=== PATIENT | male | born 1940 | race Caucasian/White ===

== ENCOUNTER 2016-11-09 12:20 | Inpatient (IN) | payer MEDICARE, MEDICAID ==
[~2016-11-09] VITALS: Ht 182.9 cm; Wt 52.2 kg
[~2016-11-09 12:20] MED LIST: ACET-868 PO; ALBU2.5V38 IH; ASCO250T5 PO; CLON0.1T PO; DOCU250C75 PO; ENOX30DI SQ; FERR325T28 PO; FURO40TA5 PO; HYDR-3326 PO; IPRA0.2S9 IH; LACT-15 PO; LEVO500T15 PO; LORA0.5T PO; MAG30ORA PO; MAGN400O6 PO; MIRT30TA PO; MULT1TAB11 PO; NICO1PAT25 TD; NICO1PAT28 TD; ONDA4TAB5 PO; PANT40TA4 PO; POTA10CA43 PO; RXVAN XX; SENN8.6T6 PO; ZINC220C6 PO; ZOLP5TAB2 PO
[2016-11-09 12:59] LABS: BASOPHILS # (AUTO) 0.3 /CMM (0.0-0.2); DIFF TOTAL % 100 %; EOSINOPHILS # (AUTO) 0.1 /CMM (0.0-0.7); EOSINOPHILS % (AUTO) 0.7 % (0.0-6.0); HEMATOCRIT 25 % (39-51); HEMOGLOBIN 8.3 g/dL (13.5-17.5); LYMPHOCYTES % (AUTO) 5.8 % (20.0-44.0); MEAN CORPUSCULAR HEMOGLOBIN 31 PG (26.0-33.0); MEAN CORPUSCULAR HGB CONC 33 g/dl (31.0-36.0); MEAN CORPUSCULAR VOLUME 92 fL (80-96); MONOCYTES # (AUTO) 0.8 /CMM (0.1-1.30); MONOCYTES % (AUTO) 4.7 % (2.0-12.0); NEUTROPHILS # (AUTO) 15.1 /CMM (1.8-8.9); NEUTROPHILS % (AUTO) 86.8 % (43.0-81.0); PLATELET COUNT (AUTO) 342 /CMM (150-450); RED BLOOD CELL COUNT(AUTO) 2.71 MIL/uL (4.5-6.0); WHITE BLOOD COUNT (AUTO) 17.3 K/uL (4.3-11.0)
[2016-11-09 13:11] LABS: CALCIUM, SERUM 8.6 mg/dL (8.5-10.1); CREATININE 1.7 mg/dL (0.6-1.3); POTASSIUM 3.3 mmol/L (3.5-5.1)
[2016-11-09 13:15] LABS: INR 1.11 (0.87-1.13); PROTHROMBIN TIME 11.7 SECS (9.5-12.7)
[2016-11-09] MEDS ORDERED: LORAZEPAM 0.5 MG TABLET PO PRN (15:00)
[2016-11-09] MEDS ORDERED: IPRATROPIUM NEB FS 0.5 MG/2.5 ML AMPUL.NEB IH PRN (15:00)
[2016-11-09] MEDS ORDERED: ACETAMINOPHEN 325 MG TABLET PO PRN (15:00)
[2016-11-09] MEDS ORDERED: MAG HYDROX/AL HYDROX/SIMETH 30 ML UDC PO PRN (15:00)
[2016-11-09] MEDS ORDERED: Z GUARD REMEDY 2 OZ OINT TP PRN (15:00)
[2016-11-09] MEDS ORDERED: MAGNESIUM HYDROXIDE 30 ML UDC PO PRN (15:00)
[2016-11-09] MEDS ORDERED: ONDANSETRON HCL/PF 4 MG/2 ML VIAL IVP PRN (15:00)
[2016-11-09] MEDS ORDERED: ZOLPIDEM TARTRATE 5 MG TABLET PO PRN (15:00)
[2016-11-09] MEDS ORDERED: ALBUTEROL FS 2.5 MG/3 ML VIAL.NEB IH PRN (15:00)
[2016-11-09] MEDS ORDERED: HYDROCODONE/APAP 5/325MG 1 EACH TABLET PO PRN (15:00)
[2016-11-09] MEDS: NICOTINE PATCH (21MG) 21 MG PATCH.TD24 TD SCH (15:00)
[2016-11-09] MEDS ORDERED: FEE PK DOSING 1 MIN EA MC ONE (15:50)
[2016-11-09 17:00] VITALS: BP 151/112
[2016-11-09] MEDS ORDERED: IV SET PRIMARY PUMP SET 1 EA INFUS.SET MC ONE (17:03)
[2016-11-09] MEDS ORDERED: SECONDARY IV SET 1 EA INFUS.SET MC ONE ×2 (17:03→17:59)
[2016-11-09] MEDS: ZINC SULFATE 220 MG CAPSULE PO SCH (17:12)
[2016-11-09] MEDS: PANTOPRAZOLE 40 MG TABLET.DR PO SCH (17:12)
[2016-11-09] MEDS: FERROUS SULFATE (325 MG) 325 MG/TAB TABLET PO SCH (17:12)
[2016-11-09] MEDS: DOCUSATE SODIUM 250 MG CAPSULE PO SCH ×2 (17:12→17:26)
[2016-11-09] MEDS: CLONIDINE HCL 0.1 MG TABLET PO SCH (17:13)
[2016-11-09] MEDS: FUROSEMIDE 40 MG TABLET PO SCH (17:13)
[2016-11-09] MEDS: ENOXAPARIN SODIUM 30 MG/0.3 ML DISP.SYRIN SQ SCH (17:14)
[2016-11-09] MEDS: IV NS 0.9% 1,000 ML IV PRN (17:25)
[2016-11-09] MEDS: VANCOMYCIN 0.75 GM in IV D5W 250 ML IV SCH (18:30)
[2016-11-09] MEDS: PIPERACILLIN /TAZOBACTAM 2.25 G in IV D5W 50 ML IV SCH (18:30)
[2016-11-09] MEDS: CADEXOMER IODINE 40 GM TUBE TP SCH (19:25)
[2016-11-09 20:00] VITALS: BP 128/63
[2016-11-09] MEDS: HYDROGEL DRESSING 90 GM TUBE TP SCH (21:13)
[2016-11-10] MEDS: PIPERACILLIN /TAZOBACTAM 2.25 G in IV D5W 50 ML IV SCH ×4 (00:18→17:29)
[2016-11-10 08:20] LABS: BASOPHILS % (AUTO) 0.1 % (0.0-2.0); DIFF TOTAL % 100 %; EOSINOPHILS % (AUTO) 0.1 % (0.0-6.0); HEMATOCRIT 22 % (39-51); HEMOGLOBIN 7.4 g/dL (13.5-17.5); LYMPHOCYTES # (AUTO) 0.7 /CMM (0.8-4.8); LYMPHOCYTES % (AUTO) 5.1 % (20.0-44.0); MEAN CORPUSCULAR HEMOGLOBIN 31 PG (26.0-33.0); MEAN CORPUSCULAR HGB CONC 33 g/dl (31.0-36.0); MEAN CORPUSCULAR VOLUME 92 fL (80-96); MONOCYTES # (AUTO) 0.6 /CMM (0.1-1.30); MONOCYTES % (AUTO) 4.4 % (2.0-12.0); NEUTROPHILS # (AUTO) 12.9 /CMM (1.8-8.9); NEUTROPHILS % (AUTO) 90.3 % (43.0-81.0); PLATELET COUNT (AUTO) 307 /CMM (150-450); RED BLOOD CELL COUNT(AUTO) 2.43 MIL/uL (4.5-6.0); WHITE BLOOD COUNT (AUTO) 14.3 K/uL (4.3-11.0)
[2016-11-10] MEDS: FERROUS SULFATE (325 MG) 325 MG/TAB TABLET PO SCH (08:40)
[2016-11-10] MEDS: PANTOPRAZOLE 40 MG TABLET.DR PO SCH (08:40)
[2016-11-10] MEDS: DOCUSATE SODIUM 250 MG CAPSULE PO SCH ×2 (08:40→17:29)
[2016-11-10] MEDS: ZINC SULFATE 220 MG CAPSULE PO SCH (08:40)
[2016-11-10] MEDS: CADEXOMER IODINE 40 GM TUBE TP SCH (08:41)
[2016-11-10] MEDS: HYDROGEL DRESSING 90 GM TUBE TP SCH ×2 (08:41→20:36)
[2016-11-10] MEDS: FUROSEMIDE 40 MG TABLET PO SCH (08:41)
[2016-11-10] MEDS: CLONIDINE HCL 0.1 MG TABLET PO SCH (08:41)
[2016-11-10] MEDS: ENOXAPARIN SODIUM 30 MG/0.3 ML DISP.SYRIN SQ SCH (08:49)
[2016-11-10] MEDS: NICOTINE PATCH (21MG) 21 MG PATCH.TD24 TD SCH (08:50)
[2016-11-10 08:52] LABS: ALBUMIN 1.7 g/dL (3.4-5.0); BILIRUBIN,TOTAL 0.6 mg/dL (0.2-1.0); CALCIUM, SERUM 8.3 mg/dL (8.5-10.1); CREATININE 1.7 mg/dL (0.6-1.3); PHOSPHORUS 3.8 mg/dL (2.5-4.9); POTASSIUM 3.1 mmol/L (3.5-5.1); TOTAL PROTEIN, SERUM 6.4 g/dL (6.4-8.2)
[2016-11-10 08:56] VITALS: BP 141/60
[2016-11-10] MEDS ORDERED: SECONDARY IV SET 1 EA INFUS.SET MC ONE (10:59)
[2016-11-10] MEDS: IV NS 0.9% 1,000 ML IV PRN (11:09)
[2016-11-10] MEDS ORDERED: POTASSIUM CHLORIDE 10 MEQ TABLET.SA PO SCH (12:00)
[2016-11-10] MEDS ORDERED: Magnesium 1GM/D5W 100ML PREMIX 100 ML IV SCH (12:00)
[2016-11-10] MEDS: VANCOMYCIN 0.75 GM in IV D5W 250 ML IV SCH (16:19)
[2016-11-10 17:43] VITALS: BP 126/79
[2016-11-10 20:00] VITALS: BP 136/69
[2016-11-11] MEDS: PIPERACILLIN /TAZOBACTAM 2.25 G in IV D5W 50 ML IV SCH ×4 (00:07→17:39)
[2016-11-11] MEDS: IV NS 0.9% 1,000 ML IV PRN ×2 (04:32→17:40)
[2016-11-11 08:00] VITALS: BP 143/70
[2016-11-11] MEDS ORDERED: LACTOSE-FREE FOOD 237 ML LIQUID PO SCH (08:00)
[2016-11-11 08:11] LABS: CALCIUM, SERUM 8.3 mg/dL (8.5-10.1); CREATININE 1.6 mg/dL (0.6-1.3); POTASSIUM 3.7 mmol/L (3.5-5.1)
[2016-11-11] MEDS: BOOST FOOD- BERRY 237 ML BOX PO SCH ×2 (08:50→17:39)
[2016-11-11] MEDS: FERROUS SULFATE (325 MG) 325 MG/TAB TABLET PO SCH (08:51)
[2016-11-11] MEDS: FUROSEMIDE 40 MG TABLET PO SCH (08:51)
[2016-11-11] MEDS: CLONIDINE HCL 0.1 MG TABLET PO SCH (08:51)
[2016-11-11] MEDS: PANTOPRAZOLE 40 MG TABLET.DR PO SCH (08:51)
[2016-11-11] MEDS: DOCUSATE SODIUM 250 MG CAPSULE PO SCH ×2 (08:51→17:39)
[2016-11-11] MEDS: ZINC SULFATE 220 MG CAPSULE PO SCH (08:51)
[2016-11-11] MEDS: NICOTINE PATCH (21MG) 21 MG PATCH.TD24 TD SCH ×2 (08:51→08:58)
[2016-11-11] MEDS: ENOXAPARIN SODIUM 30 MG/0.3 ML DISP.SYRIN SQ SCH (08:52)
[2016-11-11] MEDS: HYDROGEL DRESSING 90 GM TUBE TP SCH ×2 (08:52→21:33)
[2016-11-11] MEDS: CADEXOMER IODINE 40 GM TUBE TP SCH (08:52)
[2016-11-11] MEDS: VANCOMYCIN 0.75 GM in IV D5W 250 ML IV SCH (16:11)
[2016-11-11 20:00] VITALS: BP 156/68
[2016-11-12] MEDS: PIPERACILLIN /TAZOBACTAM 2.25 G in IV D5W 50 ML IV SCH ×4 (00:40→17:47)
[2016-11-12 07:42] LABS: CALCIUM, SERUM 8.3 mg/dL (8.5-10.1); CREATININE 1.5 mg/dL (0.6-1.3)
[2016-11-12 07:49] LABS: POTASSIUM 2.8 mmol/L (3.5-5.1)
[2016-11-12 08:00] VITALS: BP 125/57
[2016-11-12] MEDS: BOOST FOOD- BERRY 237 ML BOX PO SCH ×2 (08:00→08:25)
[2016-11-12] MEDS: ZINC SULFATE 220 MG CAPSULE PO SCH (08:26)
[2016-11-12] MEDS: PANTOPRAZOLE 40 MG TABLET.DR PO SCH (08:26)
[2016-11-12] MEDS: FERROUS SULFATE (325 MG) 325 MG/TAB TABLET PO SCH (08:26)
[2016-11-12] MEDS: DOCUSATE SODIUM 250 MG CAPSULE PO SCH ×2 (08:26→17:47)
[2016-11-12] MEDS: CLONIDINE HCL 0.1 MG TABLET PO SCH (08:26)
[2016-11-12] MEDS: ENOXAPARIN SODIUM 30 MG/0.3 ML DISP.SYRIN SQ SCH (08:27)
[2016-11-12] MEDS: FUROSEMIDE 40 MG TABLET PO SCH (08:27)
[2016-11-12] MEDS: NICOTINE PATCH (21MG) 21 MG PATCH.TD24 TD SCH (08:27)
[2016-11-12] MEDS: CADEXOMER IODINE 40 GM TUBE TP SCH (08:30)
[2016-11-12] MEDS: HYDROGEL DRESSING 90 GM TUBE TP SCH ×2 (08:30→21:15)
[2016-11-12] MEDS ORDERED: POTASSIUM CHLORIDE 20 MEQ TAB.PRT.SR PO ONE (08:30)
[2016-11-12] MEDS: IV NS 0.9% 1,000 ML IV PRN (08:45)
[2016-11-12 16:00] VITALS: BP 137/63
[2016-11-12] MEDS: BOOST PLUS FOOD-CHOCLATE 237 ML BOX PO SCH (17:47)
[2016-11-12 20:00] VITALS: BP 149/62
[2016-11-13] MEDS: PIPERACILLIN /TAZOBACTAM 2.25 G in IV D5W 50 ML IV SCH ×5 (00:33→23:39)
[2016-11-13 07:30] LABS: CALCIUM, SERUM 8.1 mg/dL (8.5-10.1); CREATININE 1.5 mg/dL (0.6-1.3)
[2016-11-13] MEDS: PANTOPRAZOLE 40 MG TABLET.DR PO SCH (07:30)
[2016-11-13 07:55] LABS: POTASSIUM 2.7 mmol/L (3.5-5.1)
[2016-11-13 08:00] VITALS: BP 144/72
[2016-11-13] MEDS: BOOST PLUS FOOD-CHOCLATE 237 ML BOX PO SCH ×2 (08:00→16:46)
[2016-11-13] MEDS: CLONIDINE HCL 0.1 MG TABLET PO SCH (08:43)
[2016-11-13] MEDS: CADEXOMER IODINE 40 GM TUBE TP SCH (08:44)
[2016-11-13] MEDS: HYDROGEL DRESSING 90 GM TUBE TP SCH ×2 (08:45→22:40)
[2016-11-13 08:54] VITALS: BP 144/72
[2016-11-13] MEDS: NICOTINE PATCH (21MG) 21 MG PATCH.TD24 TD SCH (09:00)
[2016-11-13] MEDS: FERROUS SULFATE (325 MG) 325 MG/TAB TABLET PO SCH (09:00)
[2016-11-13] MEDS: DOCUSATE SODIUM 250 MG CAPSULE PO SCH ×2 (09:00→16:46)
[2016-11-13] MEDS: ZINC SULFATE 220 MG CAPSULE PO SCH (09:00)
[2016-11-13] MEDS: ENOXAPARIN SODIUM 30 MG/0.3 ML DISP.SYRIN SQ SCH (09:00)
[2016-11-13] MEDS ORDERED: VANCOMYCIN 500 MG in IV D5W 100 ML IV SCH (09:00)
[2016-11-13] MEDS: POTASSIUM CL. PREMIX PERIPHER. 50 ML IV SCH ×4 (12:51→17:19)
[2016-11-13] MEDS ORDERED: POTASSIUM CHLORIDE 10 MEQ/50 ML PREMIXED IVPB FOR PERIPHERAL LINE IV ONE (15:00)
[2016-11-13 16:00] VITALS: BP 133/61
[2016-11-13] MEDS ORDERED: IV NS 0.9% 250 ML IV ONE (18:09)
[2016-11-13 20:00] VITALS: BP 154/69
[2016-11-14 06:58] LABS: BASOPHILS % (AUTO) 0.1 % (0.0-2.0); DIFF TOTAL % 100 %; EOSINOPHILS % (AUTO) 0.1 % (0.0-6.0); HEMATOCRIT 24 % (39-51); LYMPHOCYTES # (AUTO) 0.8 /CMM (0.8-4.8); LYMPHOCYTES % (AUTO) 4.4 % (20.0-44.0); MEAN CORPUSCULAR HEMOGLOBIN 31 PG (26.0-33.0); MEAN CORPUSCULAR HGB CONC 33 g/dl (31.0-36.0); MEAN CORPUSCULAR VOLUME 92 fL (80-96); MONOCYTES # (AUTO) 0.9 /CMM (0.1-1.30); MONOCYTES % (AUTO) 4.9 % (2.0-12.0); NEUTROPHILS # (AUTO) 16.3 /CMM (1.8-8.9); NEUTROPHILS % (AUTO) 90.5 % (43.0-81.0); PLATELET COUNT (AUTO) 403 /CMM (150-450); RED BLOOD CELL COUNT(AUTO) 2.62 MIL/uL (4.5-6.0)
[2016-11-14] MEDS: PIPERACILLIN /TAZOBACTAM 2.25 G in IV D5W 50 ML IV SCH ×4 (07:06→23:19)
[2016-11-14] MEDS: PANTOPRAZOLE 40 MG TABLET.DR PO SCH (07:07)
[2016-11-14 08:00] VITALS: BP 144/70
[2016-11-14 08:20] LABS: CALCIUM, SERUM 8.4 mg/dL (8.5-10.1); CREATININE 1.5 mg/dL (0.6-1.3); POTASSIUM 3.4 mmol/L (3.5-5.1)
[2016-11-14] MEDS: BOOST PLUS FOOD-CHOCLATE 237 ML BOX PO SCH ×2 (08:49→16:22)
[2016-11-14] MEDS: ZINC SULFATE 220 MG CAPSULE PO SCH (08:50)
[2016-11-14] MEDS: DOCUSATE SODIUM 250 MG CAPSULE PO SCH ×2 (08:50→16:23)
[2016-11-14] MEDS: FERROUS SULFATE (325 MG) 325 MG/TAB TABLET PO SCH (08:51)
[2016-11-14] MEDS: CLONIDINE HCL 0.1 MG TABLET PO SCH (08:52)
[2016-11-14] MEDS: ENOXAPARIN SODIUM 30 MG/0.3 ML DISP.SYRIN SQ SCH (08:52)
[2016-11-14] MEDS: NICOTINE PATCH (21MG) 21 MG PATCH.TD24 TD SCH (08:55)
[2016-11-14] MEDS: CADEXOMER IODINE 40 GM TUBE TP SCH (09:01)
[2016-11-14] MEDS: HYDROGEL DRESSING 90 GM TUBE TP SCH ×2 (09:01→21:18)
[2016-11-14] MEDS ORDERED: SECONDARY IV SET 1 EA INFUS.SET MC ONE ×2 (11:36→16:17)
[2016-11-14 16:00] VITALS: BP 134/95
[2016-11-14] MEDS: VANCOMYCIN 500 MG in IV D5W 100 ML IV SCH (16:22)
[2016-11-14] MEDS ORDERED: POTASSIUM CHLORIDE 20 MEQ TAB.PRT.SR PO ONE (19:00)
[2016-11-14 20:00] VITALS: BP 148/66
[2016-11-15] MEDS: ZOLPIDEM TARTRATE 5 MG TABLET PO PRN ×2 (02:17→23:32)
[2016-11-15] MEDS: PIPERACILLIN /TAZOBACTAM 2.25 G in IV D5W 50 ML IV SCH ×4 (06:14→23:27)
[2016-11-15 06:57] LABS: DIFF TOTAL % 100 %; EOSINOPHILS # (AUTO) 0.1 /CMM (0.0-0.7); EOSINOPHILS % (AUTO) 0.4 % (0.0-6.0); HEMATOCRIT 24 % (39-51); HEMOGLOBIN 7.7 g/dL (13.5-17.5); LYMPHOCYTES % (AUTO) 6.3 % (20.0-44.0); MEAN CORPUSCULAR HEMOGLOBIN 30 PG (26.0-33.0); MEAN CORPUSCULAR HGB CONC 32 g/dl (31.0-36.0); MEAN CORPUSCULAR VOLUME 92 fL (80-96); MONOCYTES % (AUTO) 5.9 % (2.0-12.0); NEUTROPHILS # (AUTO) 14.4 /CMM (1.8-8.9); NEUTROPHILS % (AUTO) 87.4 % (43.0-81.0); PLATELET COUNT (AUTO) 459 /CMM (150-450); RED BLOOD CELL COUNT(AUTO) 2.58 MIL/uL (4.5-6.0); WHITE BLOOD COUNT (AUTO) 16.5 K/uL (4.3-11.0)
[2016-11-15 07:40] LABS: CALCIUM, SERUM 8.7 mg/dL (8.5-10.1); CREATININE 1.5 mg/dL (0.6-1.3); PHOSPHORUS 2.9 mg/dL (2.5-4.9); POTASSIUM 3.9 mmol/L (3.5-5.1)
[2016-11-15 08:00] VITALS: BP 143/68
[2016-11-15] MEDS: PANTOPRAZOLE 40 MG TABLET.DR PO SCH (08:45)
[2016-11-15] MEDS: FERROUS SULFATE (325 MG) 325 MG/TAB TABLET PO SCH (08:45)
[2016-11-15] MEDS: CLONIDINE HCL 0.1 MG TABLET PO SCH (08:45)
[2016-11-15] MEDS: DOCUSATE SODIUM 250 MG CAPSULE PO SCH ×2 (08:45→17:14)
[2016-11-15] MEDS: BOOST PLUS FOOD-CHOCLATE 237 ML BOX PO SCH ×2 (08:45→17:15)
[2016-11-15] MEDS: ZINC SULFATE 220 MG CAPSULE PO SCH (08:45)
[2016-11-15] MEDS: NICOTINE PATCH (21MG) 21 MG PATCH.TD24 TD SCH (08:46)
[2016-11-15] MEDS: CADEXOMER IODINE 40 GM TUBE TP SCH (08:46)
[2016-11-15] MEDS: HYDROGEL DRESSING 90 GM TUBE TP SCH ×2 (08:46→21:31)
[2016-11-15] MEDS: ENOXAPARIN SODIUM 30 MG/0.3 ML DISP.SYRIN SQ SCH (08:50)
[2016-11-15] MEDS: Magnesium 1GM/D5W 100ML PREMIX 100 ML IV SCH ×2 (13:48→14:54)
[2016-11-15] MEDS: VANCOMYCIN 500 MG in IV D5W 100 ML IV SCH (15:27)
[2016-11-15 16:00] VITALS: BP 153/75
[2016-11-15 20:51] VITALS: BP 147/74
[2016-11-16] VITALS (7 sets, daily range): BP systolic 101–153; BP diastolic 49–67
[2016-11-16] MEDS ORDERED: IV NS 0.9% 1,000 ML BAG IV PRN (06:30)
[2016-11-16] MEDS ORDERED: IV NS 0.9% 1,000 ML ONE (06:33)
[2016-11-16] MEDS: PIPERACILLIN /TAZOBACTAM 2.25 G in IV D5W 50 ML IV SCH ×3 (06:40→17:16)
[2016-11-16 06:56] LABS: BASOPHILS % (AUTO) 0.1 % (0.0-2.0); DIFF TOTAL % 100 %; EOSINOPHILS # (AUTO) 0.2 /CMM (0.0-0.7); EOSINOPHILS % (AUTO) 1.4 % (0.0-6.0); HEMATOCRIT 23 % (39-51); HEMOGLOBIN 7.5 g/dL (13.5-17.5); LYMPHOCYTES # (AUTO) 0.9 /CMM (0.8-4.8); LYMPHOCYTES % (AUTO) 5.7 % (20.0-44.0); MEAN CORPUSCULAR HEMOGLOBIN 30 PG (26.0-33.0); MEAN CORPUSCULAR HGB CONC 33 g/dl (31.0-36.0); MEAN CORPUSCULAR VOLUME 91 fL (80-96); MONOCYTES # (AUTO) 0.7 /CMM (0.1-1.30); MONOCYTES % (AUTO) 4.4 % (2.0-12.0); NEUTROPHILS # (AUTO) 13.3 /CMM (1.8-8.9); NEUTROPHILS % (AUTO) 88.4 % (43.0-81.0); PLATELET COUNT (AUTO) 507 /CMM (150-450); RED BLOOD CELL COUNT(AUTO) 2.51 MIL/uL (4.5-6.0)
[2016-11-16 06:58] LABS: INR 1.05 (0.87-1.13); PROTHROMBIN TIME 11.4 SECS (9.5-12.7)
[2016-11-16 07:29] LABS: CALCIUM, SERUM 8.6 mg/dL (8.5-10.1); CREATININE 1.4 mg/dL (0.6-1.3); PHOSPHORUS 3.3 mg/dL (2.5-4.9); POTASSIUM 3.7 mmol/L (3.5-5.1)
[2016-11-16] MEDS: BOOST PLUS FOOD-CHOCLATE 237 ML BOX PO SCH ×2 (08:00→16:40)
[2016-11-16] MEDS: NICOTINE PATCH (21MG) 21 MG PATCH.TD24 TD SCH (09:00)
[2016-11-16] MEDS: CADEXOMER IODINE 40 GM TUBE TP SCH (09:00)
[2016-11-16] MEDS: HYDROGEL DRESSING 90 GM TUBE TP SCH ×2 (09:00→21:38)
[2016-11-16] MEDS: ENOXAPARIN SODIUM 30 MG/0.3 ML DISP.SYRIN SQ SCH (09:00)
[2016-11-16] MEDS: DOCUSATE SODIUM 250 MG CAPSULE PO SCH ×2 (09:38→16:40)
[2016-11-16] MEDS: FERROUS SULFATE (325 MG) 325 MG/TAB TABLET PO SCH (09:39)
[2016-11-16] MEDS: CLONIDINE HCL 0.1 MG TABLET PO SCH (09:39)
[2016-11-16] MEDS: ZINC SULFATE 220 MG CAPSULE PO SCH (09:39)
[2016-11-16] MEDS: PANTOPRAZOLE 40 MG TABLET.DR PO SCH (09:39)
[2016-11-16] MEDS ORDERED: SECONDARY IV SET 1 EA INFUS.SET MC ONE ×2 (12:35→15:53)
[2016-11-16] MEDS: Magnesium 1GM/D5W 100ML PREMIX 100 ML IV SCH ×2 (12:40→12:41)
[2016-11-16] MEDS: VANCOMYCIN 500 MG in IV D5W 100 ML IV SCH (14:59)
[2016-11-16] MEDS ORDERED: FENTANYL PF 100MCG/2ML AMPUL ONE (15:35)
[2016-11-16] MEDS ORDERED: HYDROMORPHONE INJ 2 MG/ML DISP.SYRIN ONE (15:35)
[2016-11-16] MEDS ORDERED: MIDAZOLAM HCL 2 MG/2ML VIAL ONE (16:14)
[2016-11-16] MEDS ORDERED: ANESTHESIA TRAY IN PYXIS 1 EA TRAY MC ONE (16:43)
[2016-11-16] MEDS: HYDROCODONE/APAP 5/325MG 1 EACH TABLET PO PRN (21:46)
[2016-11-16] MEDS: ZOLPIDEM TARTRATE 5 MG TABLET PO PRN (21:46)
[2016-11-17] MEDS: PIPERACILLIN /TAZOBACTAM 2.25 G in IV D5W 50 ML IV SCH ×4 (00:48→17:09)
[2016-11-17] MEDS: HYDROCODONE/APAP 5/325MG 1 EACH TABLET PO PRN ×3 (04:14→11:43)
[2016-11-17 08:00] VITALS: BP 129/84
[2016-11-17 08:39] LABS: BASOPHILS % (AUTO) 0.1 % (0.0-2.0); DIFF TOTAL % 100 %; HEMATOCRIT 22 % (39-51); HEMOGLOBIN 7.1 g/dL (13.5-17.5); LYMPHOCYTES # (AUTO) 0.8 /CMM (0.8-4.8); LYMPHOCYTES % (AUTO) 6.1 % (20.0-44.0); MEAN CORPUSCULAR HEMOGLOBIN 30 PG (26.0-33.0); MEAN CORPUSCULAR HGB CONC 33 g/dl (31.0-36.0); MEAN CORPUSCULAR VOLUME 92 fL (80-96); MONOCYTES # (AUTO) 0.4 /CMM (0.1-1.30); MONOCYTES % (AUTO) 2.9 % (2.0-12.0); NEUTROPHILS # (AUTO) 12.5 /CMM (1.8-8.9); NEUTROPHILS % (AUTO) 90.9 % (43.0-81.0); PLATELET COUNT (AUTO) 530 /CMM (150-450); RED BLOOD CELL COUNT(AUTO) 2.37 MIL/uL (4.5-6.0); WHITE BLOOD COUNT (AUTO) 13.8 K/uL (4.3-11.0)
[2016-11-17 08:49] LABS: CALCIUM, SERUM 8.4 mg/dL (8.5-10.1); CREATININE 1.5 mg/dL (0.6-1.3); PHOSPHORUS 5.1 mg/dL (2.5-4.9); POTASSIUM 3.9 mmol/L (3.5-5.1)
[2016-11-17] MEDS: NICOTINE PATCH (21MG) 21 MG PATCH.TD24 TD SCH (09:00)
[2016-11-17] MEDS: DOCUSATE SODIUM 250 MG CAPSULE PO SCH ×2 (09:03→17:07)
[2016-11-17] MEDS: CLONIDINE HCL 0.1 MG TABLET PO SCH (09:04)
[2016-11-17] MEDS: FERROUS SULFATE (325 MG) 325 MG/TAB TABLET PO SCH (09:04)
[2016-11-17] MEDS: ZINC SULFATE 220 MG CAPSULE PO SCH (09:04)
[2016-11-17] MEDS: CADEXOMER IODINE 40 GM TUBE TP SCH (09:06)
[2016-11-17] MEDS: HYDROGEL DRESSING 90 GM TUBE TP SCH ×2 (09:06→20:09)
[2016-11-17] MEDS: PANTOPRAZOLE 40 MG TABLET.DR PO SCH (09:09)
[2016-11-17] MEDS: BOOST PLUS FOOD-CHOCLATE 237 ML BOX PO SCH ×2 (10:42→17:07)
[2016-11-17] MEDS ORDERED: SECONDARY IV SET 1 EA INFUS.SET MC ONE (10:55)
[2016-11-17] MEDS ORDERED: IV SET PRIMARY PUMP SET 1 EA INFUS.SET MC ONE (11:00)
[2016-11-17] MEDS: VANCOMYCIN 500 MG in IV D5W 100 ML IV SCH (15:17)
[2016-11-17 16:00] VITALS: BP 112/54
[2016-11-17 20:00] VITALS: BP_SYST 154; BP_SYST 161; BP_DIAS 72; BP_DIAS 78
[2016-11-18] VITALS (13 sets, daily range): BP systolic 104–161; BP diastolic 58–89
[2016-11-18] MEDS: PIPERACILLIN /TAZOBACTAM 2.25 G in IV D5W 50 ML IV SCH ×5 (00:04→23:41)
[2016-11-18 05:36] LABS: BASOPHILS % (AUTO) 0.1 % (0.0-2.0); DIFF TOTAL % 100 %; EOSINOPHILS % (AUTO) 0.4 % (0.0-6.0); LYMPHOCYTES # (AUTO) 0.9 /CMM (0.8-4.8); LYMPHOCYTES % (AUTO) 6.6 % (20.0-44.0); MEAN CORPUSCULAR HEMOGLOBIN 30 PG (26.0-33.0); MEAN CORPUSCULAR HGB CONC 33 g/dl (31.0-36.0); MEAN CORPUSCULAR VOLUME 90 fL (80-96); MONOCYTES # (AUTO) 0.6 /CMM (0.1-1.30); MONOCYTES % (AUTO) 4.5 % (2.0-12.0); NEUTROPHILS # (AUTO) 11.4 /CMM (1.8-8.9); NEUTROPHILS % (AUTO) 88.4 % (43.0-81.0); PLATELET COUNT (AUTO) 540 /CMM (150-450); RED BLOOD CELL COUNT(AUTO) 2.18 MIL/uL (4.5-6.0); WHITE BLOOD COUNT (AUTO) 12.8 K/uL (4.3-11.0)
[2016-11-18 05:38] LABS: HEMATOCRIT 20 % (39-51); HEMOGLOBIN 6.5 g/dL (13.5-17.5)
[2016-11-18 05:40] LABS: CALCIUM, SERUM 8.2 mg/dL (8.5-10.1); CREATININE 1.3 mg/dL (0.6-1.3); PHOSPHORUS 3.6 mg/dL (2.5-4.9); POTASSIUM 3.9 mmol/L (3.5-5.1)
[2016-11-18 07:08] LABS: BAND % (MANUAL) 1 % (0.0-5.0); LYMPHOCYTES % (MANUAL) 5 % (16-48)
[2016-11-18 07:09] LABS: ANISOCYTOSIS 1+; HYPOCHROMASIA 2+
[2016-11-18 07:10] LABS: PLATELET ESTIMATE INCREASED
[2016-11-18] MEDS ORDERED: IV NS 0.9% 250 ML IV ONE ×2 (07:51→13:45)
[2016-11-18] MEDS ORDERED: BLOOD IV SET 1 EA INFUS.SET MC ONE ×2 (07:51→13:45)
[2016-11-18] MEDS: BOOST PLUS FOOD-CHOCLATE 237 ML BOX PO SCH ×2 (08:41→17:54)
[2016-11-18] MEDS: PANTOPRAZOLE 40 MG TABLET.DR PO SCH (08:42)
[2016-11-18] MEDS: FERROUS SULFATE (325 MG) 325 MG/TAB TABLET PO SCH (08:42)
[2016-11-18] MEDS: ZINC SULFATE 220 MG CAPSULE PO SCH (08:42)
[2016-11-18] MEDS: DOCUSATE SODIUM 250 MG CAPSULE PO SCH ×2 (08:42→17:54)
[2016-11-18] MEDS: CLONIDINE HCL 0.1 MG TABLET PO SCH (08:42)
[2016-11-18] MEDS: HYDROGEL DRESSING 90 GM TUBE TP SCH ×2 (08:43→21:10)
[2016-11-18] MEDS: NICOTINE PATCH (21MG) 21 MG PATCH.TD24 TD SCH (08:43)
[2016-11-18] MEDS: HYDROCODONE/APAP 5/325MG 1 EACH TABLET PO PRN (10:24)
[2016-11-18] MEDS: VANCOMYCIN 500 MG in IV D5W 100 ML IV SCH (11:23)
[2016-11-18] MEDS: BACI/NEOM/POLY B OINT PKT 1 UDPKT PACKET TP SCH (17:55)
[2016-11-18] MEDS ORDERED: SECONDARY IV SET 1 EA INFUS.SET MC ONE (23:34)
[2016-11-18] MEDS: ZOLPIDEM TARTRATE 5 MG TABLET PO PRN (23:43)
[2016-11-19] MEDS: VANCOMYCIN 500 MG in IV D5W 100 ML IV SCH (03:49)
[2016-11-19] MEDS: PIPERACILLIN /TAZOBACTAM 2.25 G in IV D5W 50 ML IV SCH ×3 (05:47→17:34)
[2016-11-19] MEDS ORDERED: VANC500F2 IV (06:06)
[2016-11-19] MEDS ORDERED: PIPE3.379 IV (06:06)
[2016-11-19 06:24] LABS: BASOPHILS % (AUTO) 0.3 % (0.0-2.0); DIFF TOTAL % 100 %; EOSINOPHILS % (AUTO) 0.3 % (0.0-6.0); HEMATOCRIT 28 % (39-51); HEMOGLOBIN 9.3 g/dL (13.5-17.5); LYMPHOCYTES # (AUTO) 0.9 /CMM (0.8-4.8); LYMPHOCYTES % (AUTO) 7.9 % (20.0-44.0); MEAN CORPUSCULAR HEMOGLOBIN 30 PG (26.0-33.0); MEAN CORPUSCULAR HGB CONC 33 g/dl (31.0-36.0); MEAN CORPUSCULAR VOLUME 89 fL (80-96); MONOCYTES # (AUTO) 0.8 /CMM (0.1-1.30); MONOCYTES % (AUTO) 6.7 % (2.0-12.0); NEUTROPHILS # (AUTO) 10.1 /CMM (1.8-8.9); NEUTROPHILS % (AUTO) 84.8 % (43.0-81.0); PLATELET COUNT (AUTO) 513 /CMM (150-450); RED BLOOD CELL COUNT(AUTO) 3.14 MIL/uL (4.5-6.0); WHITE BLOOD COUNT (AUTO) 11.9 K/uL (4.3-11.0)
[2016-11-19 06:55] LABS: CALCIUM, SERUM 8.1 mg/dL (8.5-10.1); CREATININE 1.3 mg/dL (0.6-1.3); PHOSPHORUS 2.9 mg/dL (2.5-4.9); POTASSIUM 3.8 mmol/L (3.5-5.1)
[2016-11-19 08:00] VITALS: BP 151/60
[2016-11-19] MEDS: BOOST PLUS FOOD-CHOCLATE 237 ML BOX PO SCH ×2 (08:35→17:34)
[2016-11-19] MEDS: PANTOPRAZOLE 40 MG TABLET.DR PO SCH (08:36)
[2016-11-19] MEDS: ZINC SULFATE 220 MG CAPSULE PO SCH (08:36)
[2016-11-19] MEDS: FERROUS SULFATE (325 MG) 325 MG/TAB TABLET PO SCH (08:36)
[2016-11-19] MEDS: DOCUSATE SODIUM 250 MG CAPSULE PO SCH ×2 (08:36→17:34)
[2016-11-19] MEDS: NICOTINE PATCH (21MG) 21 MG PATCH.TD24 TD SCH (08:37)
[2016-11-19] MEDS: CLONIDINE HCL 0.1 MG TABLET PO SCH (08:37)
[2016-11-19] MEDS: BACI/NEOM/POLY B OINT PKT 1 UDPKT PACKET TP SCH (08:37)
[2016-11-19] MEDS: HYDROGEL DRESSING 90 GM TUBE TP SCH (08:38)
[2016-11-19 16:00] VITALS: BP 146/77
== END 2016-11-19 18:30 | DRG 239 ==
LOC: ER 12:25 → MED 14:20 → MEDSG1 15:32 → MEDSG2 16:27
PROVIDERS: ADMIT Internal Medicine; ATTEND Internal Medicine
PROC: 0KB00ZZ Excision of Head Muscle, Open Approach (ICD-10-PCS; principal; 2016-11-13)
PROC: 0Y680ZZ Detachment at Left Femoral Region, Open Approach (ICD-10-PCS; 2016-11-16)
PROC: 30233N1 Transfusion of Nonautologous Red Blood Cells into Peripheral Vein, Percutaneous Approach (ICD-10-PCS; 2016-11-18)
DX: I96 Gangrene, not elsewhere classified (principal); N17.0 Acute kidney failure with tubular necrosis; E43 Unspecified severe protein-calorie malnutrition; I69.354 Hemiplegia and hemiparesis following cerebral infarction affecting left non-dominant side; R64 Cachexia; I13.0 Hypertensive heart and chronic kidney disease with heart failure and stage 1 through stage 4 chronic kidney disease, or unspecified chronic kidney disease; I50.30 Unspecified diastolic (congestive) heart failure; Z68.1 Body mass index [BMI] 19.9 or less, adult; N18.2 Chronic kidney disease, stage 2 (mild); F17.210 Nicotine dependence, cigarettes, uncomplicated; F10.20 Alcohol dependence, uncomplicated; F03.90 Unspecified dementia, unspecified severity, without behavioral disturbance, psychotic disturbance, mood disturbance, and anxiety; F32.9 Major depressive disorder, single episode, unspecified; J44.9 Chronic obstructive pulmonary disease, unspecified; N40.0 Benign prostatic hyperplasia without lower urinary tract symptoms; R62.7 Adult failure to thrive; E88.09 Other disorders of plasma-protein metabolism, not elsewhere classified; M62.50 Muscle wasting and atrophy, not elsewhere classified, unspecified site; K59.00 Constipation, unspecified; R29.6 Repeated falls; Z85.828 Personal history of other malignant neoplasm of skin; S91.302A Unspecified open wound, left foot, initial encounter; X58.XXXA Exposure to other specified factors, initial encounter; Y93.9 Activity, unspecified; Y92.89 Other specified places as the place of occurrence of the external cause; Y99.9 Unspecified external cause status; D72.829 Elevated white blood cell count, unspecified; S01.00XA Unspecified open wound of scalp, initial encounter; Z71.6 Tobacco abuse counseling; E83.42 Hypomagnesemia
CPT/HCPCS: 36415; 71010-TC; 80048-TC; 80053-TC; 80061-TC; 80202-TC; 83605-TC; 83735-TC; 84100-TC; 84134-TC; 84484-TC; 85025-TC; 85610-TC; 85730-TC; 86850-TC; 86921-TC; 87081-TC; 88305-TC; 88309-TC; 88311-TC; A4217; A4606; A6209; A6248; A6402; J1100; J1170; J1650; J2250; J2405; J2543; J2704; J3010; J3370; J3475; J3480; J3490; J7030; J7050; J7060; P9016-BL; Z7610

== ENCOUNTER 2017-01-05 11:36 | Inpatient (IN) | payer MEDICARE, MEDICAID ==
[~2017-01-05] VITALS: Ht 162.6 cm; Wt 49.4 kg
[~2017-01-05 11:36] MED LIST changes: -LEVO500T15 PO; +PIPE3.379 IV; +VANC500F2 IV
[2017-01-05] MEDS ORDERED: AMIN30LI4 PO (11:58)
[2017-01-05] MEDS ORDERED: GABA-534 PO (11:58)
[2017-01-05] MEDS ORDERED: BISA10SU8 RC (11:58)
[2017-01-05] MEDS ORDERED: ASCO500T9 PO (11:58)
[2017-01-05] MEDS ORDERED: NA P133E RC (11:58)
[2017-01-05 12:15] LABS: BASOPHILS % (AUTO) 0.5 % (0.0-2.0); DIFF TOTAL % 100 %; EOSINOPHILS % (AUTO) 0.3 % (0.0-6.0); HEMATOCRIT 36 % (39-51); HEMOGLOBIN 11.7 g/dL (13.5-17.5); LYMPHOCYTES # (AUTO) 0.7 /CMM (0.8-4.8); LYMPHOCYTES % (AUTO) 15.3 % (20.0-44.0); MEAN CORPUSCULAR HEMOGLOBIN 29 PG (26.0-33.0); MEAN CORPUSCULAR HGB CONC 32 g/dl (31.0-36.0); MEAN CORPUSCULAR VOLUME 89 fL (80-96); MONOCYTES # (AUTO) 0.3 /CMM (0.1-1.30); MONOCYTES % (AUTO) 6.2 % (2.0-12.0); NEUTROPHILS # (AUTO) 3.9 /CMM (1.8-8.9); NEUTROPHILS % (AUTO) 77.7 % (43.0-81.0); PLATELET COUNT (AUTO) 205 /CMM (150-450); RED BLOOD CELL COUNT(AUTO) 4.06 MIL/uL (4.5-6.0); WHITE BLOOD COUNT (AUTO) 4.9 K/uL (4.3-11.0)
[2017-01-05 12:24] LABS: ANION GAP 13 (5-14); CALCIUM, SERUM 8.6 mg/dL (8.5-10.1); CARBON DIOXIDE 25 mmol/L (21-32); CHLORIDE 106 mmol/L (98-107); CREATININE 1.5 mg/dL (0.6-1.3); GLUCOSE 71 mg/dL (74-106); POTASSIUM 5.2 mmol/L (3.5-5.1); SODIUM SERUM 138 mmol/L (136-145); UREA NITROGEN, BLOOD 47 mg/dL (7-18)
[2017-01-05 12:28] LABS: INR 1.1 (0.87-1.13); PROTHROMBIN TIME 11.6 SECS (9.5-12.7)
[2017-01-05] MEDS ORDERED: IV NS 0.9% 500 ML IV ONE (12:31)
[2017-01-05] MEDS ORDERED: IV SET PRIMARY PUMP SET 1 EA INFUS.SET MC ONE ×2 (12:31→15:28)
[2017-01-05 12:32] LABS: TROPONIN I < 0.017 ng/mL (0.00-0.056)
[2017-01-05 12:35] LABS: ALANINE AMINOTRANSFERASE 24 U/L (12-78); ALBUMIN 1.6 g/dL (3.4-5.0); ASPARTATE AMINOTRANSFERASE 52 U/L (15-37); BILIRUBIN,DIRECT 0.1 mg/dL (0.0-0.2); BILIRUBIN,TOTAL 0.2 mg/dL (0.2-1.0); INDIRECT BILIRUBIN 0.1 mg/dL (0.0-1.1); TOTAL PROTEIN, SERUM 6.9 g/dL (6.4-8.2)
[2017-01-05 12:44] LABS: KETONES,URINE Negative (NEGATIVE); LEUKOCYTE ESTERASE ,URINE Large (NEGATIVE)
[2017-01-05 12:45] LABS: ADD UA MICROSCOPIC YES
[2017-01-05 12:52] LABS: LACTIC ACID 0.9 mmol/L (0.4-2.0)
[2017-01-05 13:07] LABS: ADD URINE CULTURE YES; WBC,URINE TOO NUMEROUS TO COUN /HPF (0-3)
[2017-01-05] MEDS ORDERED: CEFTRIAXONE 1GM BAG (ER ONLY) 50 ML IV ONE (13:24)
[2017-01-05] MEDS ORDERED: CEFTRIAXONE 1 G in IV D5W 50 ML IV ONE (13:30)
[2017-01-05 14:00] VITALS: BP 151/97
[2017-01-05] MEDS ORDERED: Z GUARD REMEDY 2 OZ OINT TP PRN (14:00)
[2017-01-05] MEDS ORDERED: ZOLPIDEM TARTRATE 5 MG TABLET PO PRN (14:00)
[2017-01-05] MEDS ORDERED: ONDANSETRON HCL/PF 4 MG/2 ML VIAL IVP PRN (14:00)
[2017-01-05] MEDS ORDERED: ACETAMINOPHEN 325 MG TABLET PO PRN (14:00)
[2017-01-05] MEDS ORDERED: HYDROCODONE/APAP 5/325MG 1 EACH TABLET PO PRN (14:00)
[2017-01-05] MEDS ORDERED: FEE PK DOSING 1 MIN EA MC ONE (15:09)
[2017-01-05] MEDS ORDERED: SECONDARY IV SET 1 EA INFUS.SET MC ONE (15:28)
[2017-01-05] MEDS: PANTOPRAZOLE 40 MG VIAL IV SCH (15:35)
[2017-01-05] MEDS: IV NS 0.9% 1,000 ML IV PRN (15:35)
[2017-01-05 16:00] VITALS: BP 151/97
[2017-01-05] MEDS: VANCOMYCIN 0.75 GM in IV D5W 250 ML IV SCH (17:52)
[2017-01-05 20:00] VITALS: BP 128/51
[2017-01-06] VITALS: BP 124/47
[2017-01-06] MEDS ORDERED: DEXTROSE 50%-WATER 50 ML DISP.SYRIN ONE (00:50)
[2017-01-06] MEDS ORDERED: DEXTROSE 50%-WATER 50 ML DISP.SYRIN IVP ONE (01:00)
[2017-01-06 04:00] VITALS: BP 98/47
[2017-01-06 08:00] VITALS: BP 91/43
[2017-01-06 08:19] LABS: BASOPHILS % (AUTO) 0.9 % (0.0-2.0); DIFF TOTAL % 100 %; EOSINOPHILS % (AUTO) 0.3 % (0.0-6.0); HEMATOCRIT 26 % (39-51); LYMPHOCYTES # (AUTO) 0.6 /CMM (0.8-4.8); LYMPHOCYTES % (AUTO) 14.5 % (20.0-44.0); MEAN CORPUSCULAR HEMOGLOBIN 28 PG (26.0-33.0); MEAN CORPUSCULAR HGB CONC 31 g/dl (31.0-36.0); MEAN CORPUSCULAR VOLUME 89 fL (80-96); MONOCYTES # (AUTO) 0.3 /CMM (0.1-1.30); MONOCYTES % (AUTO) 6.9 % (2.0-12.0); NEUTROPHILS # (AUTO) 3.3 /CMM (1.8-8.9); NEUTROPHILS % (AUTO) 77.4 % (43.0-81.0); PLATELET COUNT (AUTO) 189 /CMM (150-450); RED BLOOD CELL COUNT(AUTO) 2.88 MIL/uL (4.5-6.0); WHITE BLOOD COUNT (AUTO) 4.3 K/uL (4.3-11.0)
[2017-01-06] MEDS: IV NS 0.9% 1,000 ML IV PRN (09:10)
[2017-01-06] MEDS: PANTOPRAZOLE 40 MG VIAL IV SCH (09:10)
[2017-01-06] MEDS: VANCOMYCIN 0.75 GM in IV D5W 250 ML IV SCH (09:10)
[2017-01-06 11:51] LABS: BILIRUBIN,TOTAL 0.1 mg/dL (0.2-1.0); CALCIUM, SERUM 7.9 mg/dL (8.5-10.1); CREATININE 1.5 mg/dL (0.6-1.3); PHOSPHORUS 4.4 mg/dL (2.5-4.9); POTASSIUM 4.8 mmol/L (3.5-5.1); TOTAL PROTEIN, SERUM 5.5 g/dL (6.4-8.2)
[2017-01-06 12:00] VITALS: BP 110/51
[2017-01-06 12:10] LABS: ALBUMIN 1.3 g/dL (3.4-5.0)
[2017-01-06] MEDS ORDERED: SECONDARY IV SET 1 EA INFUS.SET MC ONE ×2 (13:13→18:25)
[2017-01-06] MEDS: CEFTRIAXONE 1 G in IV D5W 50 ML IV SCH (13:18)
[2017-01-06 16:00] VITALS: BP 96/45
[2017-01-06] MEDS: HYDROGEL DRESSING 90 GM TUBE TP SCH (16:34)
[2017-01-06] MEDS: CADEXOMER IODINE 40 GM TUBE TP SCH (16:35)
[2017-01-06] MEDS ORDERED: Magnesium 1GM/D5W 100ML PREMIX 100 ML IV ONE (18:25)
[2017-01-06] MEDS ORDERED: Magnesium 1GM/D5W 100ML PREMIX 100 ML IV SCH (18:30)
[2017-01-06 20:00] VITALS: BP 105/55
[2017-01-06] MEDS: MUPIROCIN OINT 2% 22 GM TUBE SCH (21:03)
[2017-01-07] VITALS: BP 90/45
[2017-01-07 04:00] VITALS: BP 87/38
[2017-01-07] MEDS: VANCOMYCIN 0.75 GM in IV D5W 250 ML IV SCH ×2 (04:15→21:57)
[2017-01-07 07:48] LABS: BASOPHILS % (AUTO) 0.2 % (0.0-2.0); DIFF TOTAL % 100 %; EOSINOPHILS % (AUTO) 0.2 % (0.0-6.0); HEMATOCRIT 26 % (39-51); HEMOGLOBIN 8.4 g/dL (13.5-17.5); LYMPHOCYTES # (AUTO) 0.6 /CMM (0.8-4.8); LYMPHOCYTES % (AUTO) 15.8 % (20.0-44.0); MEAN CORPUSCULAR HEMOGLOBIN 29 PG (26.0-33.0); MEAN CORPUSCULAR HGB CONC 33 g/dl (31.0-36.0); MEAN CORPUSCULAR VOLUME 87 fL (80-96); MONOCYTES # (AUTO) 0.3 /CMM (0.1-1.30); MONOCYTES % (AUTO) 7.5 % (2.0-12.0); NEUTROPHILS # (AUTO) 3.1 /CMM (1.8-8.9); NEUTROPHILS % (AUTO) 76.3 % (43.0-81.0); PLATELET COUNT (AUTO) 147 /CMM (150-450); RED BLOOD CELL COUNT(AUTO) 2.93 MIL/uL (4.5-6.0); WHITE BLOOD COUNT (AUTO) 4.1 K/uL (4.3-11.0)
[2017-01-07 08:00] VITALS: BP_SYST 102; BP_SYST 105; BP_DIAS 51; BP_DIAS 58
[2017-01-07 08:09] LABS: CALCIUM, SERUM 7.9 mg/dL (8.5-10.1); CREATININE 1.5 mg/dL (0.6-1.3); POTASSIUM 4.2 mmol/L (3.5-5.1)
[2017-01-07] MEDS ORDERED: DEXTROSE 50%-WATER 50 ML DISP.SYRIN IVP ONE (08:30)
[2017-01-07] MEDS ORDERED: IV NS 0.9% 500 ML BAG IV ONE (08:30)
[2017-01-07] MEDS ORDERED: IV NS 0.9% 500 ML IV ONE (08:32)
[2017-01-07] MEDS ORDERED: IV SET PRIMARY PUMP SET 1 EA INFUS.SET MC ONE (08:32)
[2017-01-07] MEDS: HYDROGEL DRESSING 90 GM TUBE TP SCH (08:34)
[2017-01-07] MEDS: PANTOPRAZOLE 40 MG VIAL IV SCH (08:34)
[2017-01-07] MEDS: MUPIROCIN OINT 2% 22 GM TUBE SCH ×2 (08:35→21:20)
[2017-01-07] MEDS: CADEXOMER IODINE 40 GM TUBE TP SCH (08:36)
[2017-01-07] MEDS: IV D5/ 0.9% NACL 1,000 ML IV PRN (11:19)
[2017-01-07 12:00] VITALS: BP 115/58
[2017-01-07] MEDS ORDERED: FLU VACC QS 2016-17(36MOS+)/PF 0.5 ML DISP.SYRIN IM ONE (12:00)
[2017-01-07] MEDS: CEFTRIAXONE 1 G in IV D5W 50 ML IV SCH (13:01)
[2017-01-07 16:00] VITALS: BP_SYST 122; BP_DIAS 58; BP_DIAS 69
[2017-01-07] MEDS: BOOST PLUS FOOD-VANILLA 237 ML BOX PO SCH (17:36)
[2017-01-07 20:00] VITALS: BP 105/54
[2017-01-08] VITALS: BP 113/49
[2017-01-08] MEDS: IV D5/ 0.9% NACL 1,000 ML IV PRN ×3 (02:13→20:11)
[2017-01-08 04:00] VITALS: BP 106/41
[2017-01-08 07:37] LABS: CALCIUM, SERUM 7.8 mg/dL (8.5-10.1); CREATININE 1.5 mg/dL (0.6-1.3); POTASSIUM 4.3 mmol/L (3.5-5.1)
[2017-01-08 08:00] VITALS: BP 116/42
[2017-01-08] MEDS: PANTOPRAZOLE 40 MG VIAL IV SCH (08:03)
[2017-01-08] MEDS: CADEXOMER IODINE 40 GM TUBE TP SCH (08:03)
[2017-01-08] MEDS: HYDROGEL DRESSING 90 GM TUBE TP SCH (08:04)
[2017-01-08] MEDS: MUPIROCIN OINT 2% 22 GM TUBE SCH ×2 (08:04→22:06)
[2017-01-08] MEDS ORDERED: Z GUARD REMEDY 2 OZ OINT TP PRN (08:30)
[2017-01-08] MEDS ORDERED: Z GUARD REMEDY 2 OZ OINT TP SCH (09:00)
[2017-01-08 09:04] LABS: ABG BASE EXCESS -5.6 mmol/L; ABG HCO3 19.7 mmol/L; ABG PCO2 37.5 mmHg (35.0-45.0); ABG PH 7.338 (7.350-7.450); ABG PO2 212.4 mmHg (75.0-100.0); ABG TOTAL HEMOGLOBIN 8.5 G/dL (13.5-18.0); ALLEN TEST Pass; AaDO2 174.2 mmHg; O2Hb 97.4 % (94.0-97.0)
[2017-01-08 09:04] LABS: ABG BASE EXCESS -5.2 mmol/L; ABG HCO3 18.8 mmol/L; ABG PCO2 31.1 mmHg (35.0-45.0); ABG PO2 77.7 mmHg (75.0-100.0); ABG TOTAL HEMOGLOBIN 9.3 G/dL (13.5-18.0); ALLEN TEST Pass; AaDO2 34.8 mmHg; O2Hb 92.9 % (94.0-97.0)
[2017-01-08] MEDS: BOOST PLUS FOOD-VANILLA 237 ML BOX PO SCH ×3 (09:04→17:43)
[2017-01-08 12:00] VITALS: BP 105/44
[2017-01-08] MEDS ORDERED: SECONDARY IV SET 1 EA INFUS.SET MC ONE (12:34)
[2017-01-08] MEDS: MEROPENEM 500 MG in IV NS 0.9% 50 ML IV SCH ×2 (12:43→22:04)
[2017-01-08 16:00] VITALS: BP 100/43
[2017-01-08 20:00] VITALS: BP 134/47
[2017-01-08] MEDS ORDERED: VANCOMYCIN 0.75 GM in IV D5W 250 ML IV SCH (20:00)
[2017-01-08] MEDS ORDERED: VANCOMYCIN 500 MG in IV D5W 100ml IV SCH (21:00)
[2017-01-09 04:00] VITALS: BP 131/48
[2017-01-09] MEDS: IV D5/ 0.9% NACL 1,000 ML IV PRN (06:52)
[2017-01-09 07:38] LABS: BASOPHILS % (AUTO) 0.3 % (0.0-2.0); DIFF TOTAL % 100 %; EOSINOPHILS % (AUTO) 0.8 % (0.0-6.0); HEMATOCRIT 27 % (39-51); HEMOGLOBIN 8.4 g/dL (13.5-17.5); LYMPHOCYTES # (AUTO) 0.5 /CMM (0.8-4.8); LYMPHOCYTES % (AUTO) 10.6 % (20.0-44.0); MEAN CORPUSCULAR HEMOGLOBIN 28 PG (26.0-33.0); MEAN CORPUSCULAR HGB CONC 32 g/dl (31.0-36.0); MEAN CORPUSCULAR VOLUME 88 fL (80-96); MONOCYTES # (AUTO) 0.2 /CMM (0.1-1.30); MONOCYTES % (AUTO) 5.6 % (2.0-12.0); NEUTROPHILS # (AUTO) 3.6 /CMM (1.8-8.9); NEUTROPHILS % (AUTO) 82.7 % (43.0-81.0); PLATELET COUNT (AUTO) 142 /CMM (150-450); RED BLOOD CELL COUNT(AUTO) 3.02 MIL/uL (4.5-6.0); WHITE BLOOD COUNT (AUTO) 4.3 K/uL (4.3-11.0)
[2017-01-09 07:47] LABS: CALCIUM, SERUM 7.5 mg/dL (8.5-10.1); CREATININE 1.4 mg/dL (0.6-1.3); POTASSIUM 4.1 mmol/L (3.5-5.1)
[2017-01-09 08:00] VITALS: BP 142/62
[2017-01-09] MEDS: MEROPENEM 500 MG in IV NS 0.9% 50 ML IV SCH (09:49)
[2017-01-09] MEDS: PANTOPRAZOLE 40 MG VIAL IV SCH (09:49)
[2017-01-09] MEDS: MUPIROCIN OINT 2% 22 GM TUBE SCH (09:49)
[2017-01-09] MEDS: BOOST PLUS FOOD-VANILLA 237 ML BOX PO SCH ×2 (09:49→12:09)
[2017-01-09] MEDS: HYDROGEL DRESSING 90 GM TUBE TP SCH (09:50)
[2017-01-09] MEDS: CADEXOMER IODINE 40 GM TUBE TP SCH (09:50)
== END 2017-01-09 15:15 | DRG 689 ==
LOC: ER 11:40 → TELE-TD 13:34 → TELE1 01-08 14:38 → MEDSG1 01-08 15:06
PROVIDERS: ADMIT Internal Medicine; ATTEND Internal Medicine
DX: N39.0 Urinary tract infection, site not specified (principal); E43 Unspecified severe protein-calorie malnutrition; N17.0 Acute kidney failure with tubular necrosis; G92 Toxic encephalopathy; I50.32 Chronic diastolic (congestive) heart failure; I13.0 Hypertensive heart and chronic kidney disease with heart failure and stage 1 through stage 4 chronic kidney disease, or unspecified chronic kidney disease; Z68.1 Body mass index [BMI] 19.9 or less, adult; B96.20 Unspecified Escherichia coli [E. coli] as the cause of diseases classified elsewhere; E86.9 Volume depletion, unspecified; F17.210 Nicotine dependence, cigarettes, uncomplicated; F03.90 Unspecified dementia, unspecified severity, without behavioral disturbance, psychotic disturbance, mood disturbance, and anxiety; J44.9 Chronic obstructive pulmonary disease, unspecified; Z16.12 Extended spectrum beta lactamase (ESBL) resistance; Z86.73 Personal history of transient ischemic attack (TIA), and cerebral infarction without residual deficits; Z85.828 Personal history of other malignant neoplasm of skin; N40.1 Benign prostatic hyperplasia with lower urinary tract symptoms; N18.2 Chronic kidney disease, stage 2 (mild); D63.8 Anemia in other chronic diseases classified elsewhere; L89.320 Pressure ulcer of left buttock, unstageable; L89.310 Pressure ulcer of right buttock, unstageable; Z89.512 Acquired absence of left leg below knee; L97.519 Non-pressure chronic ulcer of other part of right foot with unspecified severity; I73.9 Peripheral vascular disease, unspecified; S81.801A Unspecified open wound, right lower leg, initial encounter; X58.XXXA Exposure to other specified factors, initial encounter; Y93.9 Activity, unspecified; Y92.89 Other specified places as the place of occurrence of the external cause; Y99.9 Unspecified external cause status; L89.610 Pressure ulcer of right heel, unstageable; E16.2 Hypoglycemia, unspecified; Z66 Do not resuscitate
CPT/HCPCS: 36415; 36600; 70450-TC; 71010-TC; 80048-TC; 80053-TC; 80061-TC; 80076-TC; 80202-TC; 81000-TC; 82962-TC; 83605-TC; 83735-TC; 83880; 84100-TC; 84134-TC; 84484-TC; 85025-TC; 85730-TC; 87040-TC; 87081-TC; 87086-TC; 87186-TC; 87400; 94799-TC; 95819-TC; A4216; A4606; A6248; A6253; A6402; A6403; C9113; J0696; J2185; J3370; J3475; J7030; J7040; J7042; J7060; Q2036; Z7610